=== PATIENT | female | born 2000 | race Caucasian/White ===

== ENCOUNTER 2021-07-09 05:51 | Inpatient (IN) | payer OTHER ==
[~2021-07-09] VITALS: Ht 167.6 cm; Wt 81.0 kg
[~2021-07-09 05:51] MED LIST: CODACEE120 PO; RXCODACESY PO; RXHYDACE PO; RXSULTRIDS PO; SULTRIDS PO
[2021-07-09 07:14] LABS: U Amphetamine Screen Not Detected; U Barbituate Screen Not Detected; U Benzodiazapine Screen Not Detected; U Buprenorphine Screen Not Detected; U Cannabinoids Screen DETECTED; U Cocaine Screen Not Detected; U Methadone Screen Not Detected; U Methamphetamine Screen Not Detected; U Opiates Screen Not Detected; U Oxycodone Screen Not Detected; U Phencyclidine Screen Not Detected
[2021-07-09 07:15] LABS: U Propoxyphene Screen Not Detected
[2021-07-09] MEDS ORDERED: PRENATAL TABLE1 EAC2 PO (07:31)
[2021-07-09 07:41] LABS: BASOPHILS ABSOLUTE AUTO 0.06 K/mm3 (0.00-0.23); BASOPHILS PERCENT AUTO 1 % (0-2); EOSINOPHILS ABSOLUTE AUTO 0.15 K/mm3 (0.00-0.68); EOSINOPHILS PERCENT AUTO 2 % (0-6); Hematocrit 40.1 % (33.0-51.0); Hemoglobin 13.5 g/dL (11.5-16.0); IMMATURE GRAN PERCENT AUTO 1 % (0-1); LYMPHOCYTES ABSOLUTE AUTO 2.13 K/mm3 (0.84-5.20); LYMPHOCYTES PERCENT AUTO 24 % (21-46); MONOCYTES ABSOLUTE AUTO 0.89 K/mm3 (0.16-1.47); MONOCYTES PERCENT AUTO 10 % (4-13); Mean Corpuscular HGB Conc 33.7 g/dL (31.5-36.5); Mean Corpuscular Volume 92 fL (80-100); Mean Platelet Volume 11.9 fL (9.1-12.4); NEUTROPHILS PERCENT AUTO 63 % (41-73); Platelet Count 234 K/mm3 (150-400); RDW Coefficient Variation 12.1 % (11.7-14.2); RDW Standard Deviation 41.1 fL (35.1-46.3); Red Blood Cell Count 4.35 M/mm3 (3.80-5.20); White Blood Cell Count 8.93 K/mm3 (4.00-11.30)
[2021-07-09 08:00] LABS: Influenza A, PCR NEGATIVE (NEGATIVE); Influenza B, PCR NEGATIVE (NEGATIVE); Resp Syncytial Virus, PCR NEGATIVE (NEGATIVE); SARS-Cov-2 (COVID-19) PCR, MMC NEGATIVE (NEGATIVE)
[2021-07-09] MEDS ORDERED: IBUP800 PO (15:37)
--- NOTE | 2021-07-09 17:34 | NUR ---
Pt resting in bed, holding sleeping baby. Mother reports nb has not fed since bottle feed at . NB placed skin to skin, mother encouraged to call if she needs assistance with feed.
[2021-07-10 06:36] LABS: Hematocrit 33.9 % (33.0-51.0); Hemoglobin 11.5 g/dL (11.5-16.0); Mean Corpuscular HGB 31.3 pg (26.0-34.0); Mean Corpuscular HGB Conc 33.9 g/dL (31.5-36.5); Mean Corpuscular Volume 92 fL (80-100); Mean Platelet Volume 11.6 fL (9.1-12.4); Platelet Count 205 K/mm3 (150-400); RDW Coefficient Variation 12.1 % (11.7-14.2); RDW Standard Deviation 41.1 fL (35.1-46.3); Red Blood Cell Count 3.68 M/mm3 (3.80-5.20); White Blood Cell Count 8.94 K/mm3 (4.00-11.30)
== END 2021-07-10 14:15 | disposition home or self-care (01) | DRG 807 ==
LOC: OBS 05:51 → BC 05:52 → OBS 07:09 → BC 07:17
PROVIDERS: ADMIT Nurse Practitioner Obstetrics & Gynecology
PROC: 10E0XZZ Delivery of Products of Conception, External Approach (ICD-10-PCS; principal; 2021-07-09)
PROC: 10907ZC Drainage of Amniotic Fluid, Therapeutic from Products of Conception, Via Natural or Artificial Opening (ICD-10-PCS; 2021-07-09)
PROC: 10H07YZ Insertion of Other Device into Products of Conception, Via Natural or Artificial Opening (ICD-10-PCS; 2021-07-09)
PROC: 3E033VJ Introduction of Other Hormone into Peripheral Vein, Percutaneous Approach (ICD-10-PCS; 2021-07-09)
PROC: 00HU33Z Insertion of Infusion Device into Spinal Canal, Percutaneous Approach (ICD-10-PCS; 2021-07-09)
PROC: 3E0R3BZ Introduction of Anesthetic Agent into Spinal Canal, Percutaneous Approach (ICD-10-PCS; 2021-07-09)
PROC: 3E0R3NZ Introduction of Analgesics, Hypnotics, Sedatives into Spinal Canal, Percutaneous Approach (ICD-10-PCS; 2021-07-09)
DX: O99.324 Drug use complicating childbirth (principal); Z37.0 Single live birth; O48.0 Post-term pregnancy; O77.0 Labor and delivery complicated by meconium in amniotic fluid; Z67.40 Type O blood, Rh positive; Z3A.40 40 weeks gestation of pregnancy; F12.10 Cannabis abuse, uncomplicated; Z20.822 Contact with and (suspected) exposure to COVID-19; O70.0 First degree perineal laceration during delivery
CPT/HCPCS: 0241U; 51702; 59025; 59070; 85025; 85027; 86850; 86900; 86901; A9270; J2210; J2590; J7030; J7120

== ENCOUNTER → 2022-05-14 | Outpatient (CLI) | payer OTHER ==
[~2022-05-14] MED LIST changes: +CEPH500 PO; +IBUP800 PO; +PRENATAL TABLE1 EAC2 PO
[2022-05-14 16:58] LABS: Source, Urine Clean Catch
[2022-05-14 19:14] LABS: Bacteria Many /hpf; Squamous Epithelial Cells Many /hpf (Few)
[2022-05-14 19:17] LABS: U Amphetamine Screen DETECTED; U Barbituate Screen Not Detected; U Benzodiazapine Screen Not Detected; U Buprenorphine Screen Not Detected; U Cannabinoids Screen DETECTED; U Cocaine Screen Not Detected; U Methadone Screen Not Detected; U Methamphetamine Screen DETECTED; U Opiates Screen Not Detected; U Oxycodone Screen Not Detected; U Phencyclidine Screen Not Detected; U Propoxyphene Screen Not Detected
== END | disposition home or self-care (01) ==
LOC: LAB SHORT 16:56 → LAB 16:56
PROVIDERS: Advanced Practice Midwife
DX: Z34.01 Encounter for supervision of normal first pregnancy, first trimester (principal)
CPT/HCPCS: 81015; 87086

== ENCOUNTER 2024-05-08 18:12 | Emergency (ER) | payer SELFPAY ==
[~2024-05-08] VITALS: Ht 167.6 cm; Wt 62.6 kg
[2024-05-08 18:42] VITALS: BP 151/91
[2024-05-08] MEDS ORDERED: PredniSONE 20 MG Tab PO ONE (20:20)
[2024-05-08] MEDS ORDERED: Prednisone50 MG PO (20:20)
== END 2024-05-08 20:43 | disposition home or self-care (01) ==
LOC: ER 18:12
DX: G51.0 Bell's palsy (principal)
CPT/HCPCS: 99283; J7512

== ENCOUNTER 2024-08-08 21:23 | Emergency (ER) | payer OTHER ==
[~2024-08-08] VITALS: Ht 167.6 cm; Wt 70.8 kg
[2024-08-08 21:56] LABS: BASOPHILS ABSOLUTE AUTO 0.04 K/mm3 (0.00-0.23); BASOPHILS PERCENT AUTO 1 % (0-2); EOSINOPHILS ABSOLUTE AUTO 0.06 K/mm3 (0.00-0.68); EOSINOPHILS PERCENT AUTO 1 % (0-6); Hematocrit 29.7 % (33.0-51.0); Hemoglobin 10.2 g/dL (11.5-16.0); IMMATURE GRAN ABSOLUTE AUTO 0.06 K/mm3 (0.00-0.10); IMMATURE GRAN PERCENT AUTO 1 % (0-1); LYMPHOCYTES ABSOLUTE AUTO 1.45 K/mm3 (0.84-5.20); LYMPHOCYTES PERCENT AUTO 17 % (21-46); MONOCYTES ABSOLUTE AUTO 0.63 K/mm3 (0.16-1.47); MONOCYTES PERCENT AUTO 7 % (4-13); Mean Corpuscular HGB 32.4 pg (26.0-34.0); Mean Corpuscular HGB Conc 34.3 g/dL (31.5-36.5); Mean Corpuscular Volume 94 fL (80-100); Mean Platelet Volume 10.7 fL (9.1-12.4); NEUTROPHILS ABSOLUTE AUTO 6.29 K/mm3 (1.96-9.15); NEUTROPHILS PERCENT AUTO 74 % (41-73); Platelet Count 201 K/mm3 (150-400); RDW Coefficient Variation 12.7 % (11.7-14.2); RDW Standard Deviation 43.5 fL (35.1-46.3); Red Blood Cell Count 3.15 M/mm3 (3.80-5.20); White Blood Cell Count 8.53 K/mm3 (4.00-11.30)
[2024-08-08 22:13] LABS: Albumin, Blood 3.1 g/dL (3.4-5.0); Albumin/Globulin Ratio 0.8 (0.8-1.8); Bilirubin, Total 0.3 mg/dL (0.1-1.0); Bun/Creatinine Ratio 20.1 (12.0-20.0); Calcium, Blood 8.3 mg/dL (8.5-10.1); Creatinine, Blood 0.5 mg/dL (0.40-1.00); Globulin, Blood 4.1 g/dL (2.2-4.0); Potassium, Blood 3.6 mmol/L (3.5-5.5); Total Protein, Blood 7.2 g/dL (6.4-8.2)
[2024-08-08 22:49] VITALS: BP 145/84
[2024-08-08] MEDS ORDERED: NS 1,000 ML IV SCH (23:05)
[2024-08-08] MEDS ORDERED: Ketorolac Tromethamine 30mg Vial IV ONE (23:05)
[2024-08-09 00:24] LABS: Source, Urine Clean Catch
[2024-08-09 00:27] LABS: Appearance, Urine Hazy (Clear); Bilirubin, Urine Neg (Neg); Blood, Urine 5+ (Neg); Glucose Qualitative, Urine Neg (Neg); Ketones, Urine Neg (Neg); Leukocyte Esterase, Urine Neg (Neg); Nitrite, Urine Neg (Neg); Protein, Urine 1+ (Neg); Urobilinogen, Urine NORM (Normal)
[2024-08-09 00:39] LABS: Color, Urine Pale Yellow (P-Yellow)
[2024-08-09 00:40] LABS: Bacteria Few /hpf; Red Blood Cells, Urine 50-100 /hpf (0-2); Squamous Epithelial Cells Rare /hpf (Few); White Blood Cells, Urine 0-2 /hpf (0-5)
== END 2024-08-09 00:35 | disposition home or self-care (01) ==
LOC: ER 21:23
PROVIDERS: Emergency Medicine; Student in an Organized Health Care Education/Training Program
DX: N99.820 Postprocedural hemorrhage of a genitourinary system organ or structure following a genitourinary system procedure (principal); E86.0 Dehydration; R10.2 Pelvic and perineal pain; Z79.52 Long term (current) use of systemic steroids; Z59.89 Other problems related to housing and economic circumstances
CPT/HCPCS: 36415; 76830; 76856; 80053; 81001; 85025; 86850; 86900; 86901; 96374; 99284-25; J1885; J7030

== ENCOUNTER → 2024-08-08 | Outpatient (CLI) | payer OTHER ==
[~2024-08-08] MED LIST changes: +Prednisone50 MG PO
== END ==
LOC: LAB 18:26 → LAB SHORT 18:26
DX: R30.0 Dysuria (principal)
CPT/HCPCS: 87086